=== PATIENT | female | born 1940 | race Caucasian/White ===

== ENCOUNTER → 2016-06-21 | Outpatient (CLI) | payer BC ==
[~2016-06-21] MED LIST: ACCL20 PO; ALBU1AER9 INH; APIX1TAB3 PO; ATOR-24 PO; CHOL100010 PO; CLC100X PO; CLIN300C2 PO; CLTP PO; COEN100C6 PO; DILT-117 PO; FAMO20TA12 PO; FIBER PO; LISI-787 PO; MELATAB2 PO; METR0.7536 TOP; MULT-506 PO; MULT60CA PO; TYL325X PO
--- NOTE | 2016-06-21 13:59 | MAMMOGRAPHY REPORT ---
BILATERAL DIGITAL SCREENING MAMMOGRAM WITH CAD: 06/21/2016 CLINICAL HISTORY: Routine screening. Patient has no complaints. TECHNIQUE: Current study was also evaluated with a Computer Aided Detection (CAD) system. Bilatera l CC and MLO views were obtained. COMPARISON: Comparison is made to exams dated: 06/17/2015 mammogram, 06/16/2014 mammogram, 05/05/2013 m ammogram, 11/05/2012 mammogram - [facility], 02/21/2010 mammogram - [facility], and 05/06/2012 mammogram - [facility]. BREAST COMPOSITION: There are scattered areas of fibroglandular density in both breasts. FINDINGS: No suspicious masses, calcifications, or areas of architectural distortion are noted in e ither breast. There has been no significant interval change compared to prior exams. Scattered bilat eral benign-appearing calcifications are not significantly changed. IMPRESSION: ACR BI-RADS CATEGORY 2: BENIGN There is no mammographic evidence of malignancy. A 1 year screening mammogram is recommended. The p atient will receive written notification of the results. Approximately 10% of breast cancers are not detected with mammography. A negative mammographic repor t should not delay biopsy if a clinically suggestive mass is present. Starr Wright M.D. /:06/21/2016 12:19:43 Keyseating Machine Set Up Operator: Payal Rainey [facility] letter sent: Normal 1/2 BI-RADS Code: ACR BI-RADS Category 2: Benign
== END | disposition home or self-care (01) ==
LOC: C.MAMM 10:12
PROVIDERS: ATTEND Family Medicine
DX: Z12.31 Encounter for screening mammogram for malignant neoplasm of breast (principal)

== ENCOUNTER → 2017-03-12 | Outpatient (CLI) | payer BC | END | disposition home or self-care (01) | LOC: C.LABSPEC 17:12 | PROVIDERS: ATTEND Nurse Practitioner Adult Health | DX: R32 Unspecified urinary incontinence (principal); R39.15 Urgency of urination; R35.0 Frequency of micturition; R35.1 Nocturia ==

== ENCOUNTER 2017-03-27 11:50 | Observation (INO) | payer BC ==
[~2017-03-27] VITALS: Ht 162.6 cm; Wt 104.9 kg
[2017-03-27] VITALS (8 sets, daily range): BP systolic 138–180; BP diastolic 71–78; PULSE 69–78; TEMP 36.4–36.9; O2SAT 93–96; Ht 162.6 cm; Wt 104.9 kg
[~2017-03-27 11:50] MED LIST changes: +CEFAZOLIN IV 1,000 MG in DEXTROSE 5% 50ML IV SCH
[2017-03-27] MEDS ORDERED: OMEG100046 PO (12:54)
[2017-03-27] MEDS ORDERED: NAPR1TAB9 PO (12:54)
[2017-03-27] MEDS ORDERED: MIRA100T PO (12:54)
[2017-03-27] MEDS ORDERED: ALLO100T PO (12:54)
[2017-03-27] MEDS ORDERED: FLUT0.15 NAE (12:54)
[2017-03-27] MEDS ORDERED: LNX125 PO (12:54)
--- NOTE | 2017-03-27 12:56 | History and Physical ---
History General Date of Service: Mar 27, 2017. Stated Complaint: Bradycardia History of Present Illness The patient is a 76 year old female who presents to [facility] with complaints of Bradycardia. The patient's primary care provider is Ryland Hillman MD. She has history of paroxysmal atrial fibrillation with rapid ventricular rates. She has also noted on routine outpatient monitoring to have periods of junctional bradycardia associated with symptoms. 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 Recently the patient has been feeling well. She is not dizzy today. She has no current dyspnea or shortness of breath. No current chest discomfort. No sense of palpitation. Historian: patient, spouse Review of Systems Per HPI. No recent fevers or chills. All Other Systems: Reviewed and Negative Past Medical/Surgical History Atrial fibrillation, paroxysmal Diabetes mellitus Gout Hyperlipidemia Asthma Hypertension Peripheral neuropathy Past surgical history: Ankle surgery Knee surgery Tonsillectomy Cataracts Tubal ligation Family History FHx: cancer FHx: lung disease Hypertension No premature coronary disease Social History Currently lives locally with her Smoking Status: Never Smoker Alcohol: occasionally Drug Use: none Marital Status: Housing Status: lives with family Occupation Status: retired Immunizations History of Influenza Vaccine: Yes History of Tetanus Vaccine?: Yes Tetanus Immunization Date: November 08, 1998 History of Pneumococcal: Yes Pneumococcal Date: November 08, 2004 History of Hepatitis B Vaccine: No History of MDRO History of MDRO: No Allergies Coded Allergies: Penicillins (Verified Allergy, Mild, RASH, 03/27/17) Tetracycline (Verified Allergy, Mild, GI SYMPTOMS, 03/27/17) Sulfamethoxazole w/Trimethoprim (Verified Adverse Reaction, Unknown, MAKES SKIN ITCHY, 03/27/17) Current Home Medications Reported Home Medications Medications Dose Route/Sig Max Daily Dose Days Date Category Dose Instructions Tylenol (Acetaminophen) 325 Mg Tab 650 Mg PO Q4H PRN 30 04/03/16 Rx Cleocin (Clindamycin Hcl) 300 Mg Cap 300 Mg PO TIDM 14 04/03/16 Rx Preservision Areds 2 (Multiple Vitamins W/ Minerals) 1 Cap Cap 1 Cap PO DAILY 03/29/16 Reported Multivitamin (Multivitamins) Tab 1 Tab PO DAILY 03/29/16 Reported Metronidazole (Metronidazole (Topical)) 1 % Gel Unknown Dose TOP BID 03/29/16 Reported Melatonin Maximum Strengt (Melatonin) 5 Mg Tab 20 Mg PO HS 30 03/29/16 Reported Tiazac (Diltiazem HCl) 300 Mg Capcr 300 Mg PO DAILY 03/29/16 Reported Eliquis (Apixaban) 5 Mg Tab 5 Mg PO BID 03/29/16 Reported Zafirlukast 20 Mg Tab 10 Mg PO BID 04/28/14 Reported Co-Enzyme Q10 (Coenzyme Q10 (Ubidecarenone)) 100 Mg Cap 200 Mg PO DAILY 04/28/14 Reported Fiber Laxative (Fiber) Ea 6 Tabs PO DAILY 04/28/14 Reported Zestoretic 20-12.5 mg (Lisinopril & Hydrochlorothiazi) 1 Tab Tab 1 Mg PO BID 04/28/14 Reported Famotidine 20 Mg Tab 10 Mg PO DAILY 04/28/14 Reported Colace (Docusate Sodium) 100 Mg Cap 600 Mg PO DAILY 04/28/14 Reported take 6 colace tablets daily at bedtime Vitamin D (Cholecalciferol) 1,000 Inter.unit Tab 1,000 Inter.unit PO DAILY 04/28/14 Reported Lipitor (Atorvastatin Calcium) 40 Mg Tab 40 Mg PO HS 04/28/14 Reported Proair Hfa (Albuterol) Aers 2 Puffs INH QID PRN 04/28/14 Reported Caltrate 600 Plus * (Calcium/Vitamin D) Tab 1 Tab PO DAILY 10/18/06 Reported Physical Exam She is alert and oriented x3. Mood affect appear normal. She answered all questions appropriately. HEENT: Sclerae are anicteric. Pupils are equal and reactive to light and accommodation. Extraocular movements were intact. Neuro: Cranial nerves intact Neck: Examination of the submandibular region did not reveal any significant lymphadenopathy. Carotids are palpable bilaterally and free of bruits on auscultation. There was no evidence of jugular venous distention. The thyroid was not enlarged. Lungs: Lungs are clear to auscultation bilaterally. There are no rales wheezes or rhonchi. She has normal respiratory effort without use of accessory muscles. There is normal pulmonary excursion. Cardiac: The rhythm was regular. S1 and S2 were normal. There are no murmurs on examination. The PMI was not markedly displaced on palpation. Abdomen: The abdomen was soft and nontender. Extremities: Patient has bilateral radial pulses that are equal in intensity. There is no evidence cyanosis or clubbing. There was no evidence of significant peripheral edema bilaterally. Skin: There are no rashes noted on examination today. Diagnostics Laboratory Results I reviewed her records from [facility] cardiology Impression Assessment and Plan 1. Tachy-samm syndrome: Patient did have some symptoms associated with the low heart rates reported as a junctional rhythm. She also has high heart rates while in atrial fibrillation. In order to facilitate better rate control and prevent symptoms she has good candidate for a permanent pacer due to symptomatic non reversible sinus node dysfunction. Dual-chamber device is being selected today as the patient is currently in sinus rhythm which to maintain AV synchrony 2. Atrial fibrillation: This appears to be paroxysmal. She has been appropriately anticoagulated. We are holding anticoagulation for this procedure.
--- NOTE | 2017-03-27 12:57 | Procedure Note ---
Pre-Mod Sedation Assessment General Date of Moderate Sedation: Mar 27, 2017. Review Cardiovascular: regular rate, rhythm Pre-Sedation Airway Assessment Oral Cavity: WNL Able to Visualize Vocal Cords: No Short Thick Neck: No Hx of Sleep Apnea: No Smoking Status: Never Smoker Mallampati Classification: Class III ASA Classification: Class II Procedure Planning Contraindications-for Mod Sed: None Yes Notes The planned sedation has been discussed with the patient and consent obtained. I have identified the patient, determined the appropriateness of sedation and have assessed the patient immediately prior to the procedure. All medicine(s) and interventions are by my order.
[2017-03-27] MEDS ORDERED: FENTANYL CITRATE INJ 50 MCG/1 ML 2 ML VIAL ONE (13:19)
[2017-03-27] MEDS ORDERED: MIDAZOLAM HCL 5 MG/ML 1 ML VIAL ONE (13:19)
[2017-03-27] MEDS ORDERED: BUPIVACAINE 0.5 % 5 MG/1 ML MPF 30ML VIAL ONE (13:20)
[2017-03-27] MEDS ORDERED: BACITRACIN 50000 UNIT VIAL ONE (13:20)
[2017-03-27] MEDS ORDERED: LIDOCAINE HCL 1% 20 ML VIAL ONE (13:20)
[2017-03-27] MEDS ORDERED: CLINDAMYCIN 600 MG/54 ML D5W IV SCH (13:30)
[2017-03-27] MEDS ORDERED: CLINDAMYCIN IV 600 MG in DEXTROSE 5% ADD-VANTAGE 50ML 50 ML IV SCH (13:30)
[2017-03-27] MEDS ORDERED: ALBUTEROL 0.5% NEB SOLN 2.5 MG/0.5 ML VIAL INH PRN (14:30)
--- NOTE | 2017-03-27 14:36 | Procedure Note ---
Procedure Note Date of Service Mar 27, 2017. Procedure Note Procedure performed: Implantation of dual-chamber permanent pacemaker Staff research assistant member: Que Merida MD Indication: The patient is a 76-year-old woman with a history of paroxysmal atrial fibrillation rapid rates. He has also noted on rate control medications to have episodes of junctional bradycardia associated with symptoms. Based on these findings she was felt to be a good candidate for a permanent pacemaker due to symptomatic non reversible sinus node dysfunction. A dual-chamber device was selected as she is currently in sinus rhythm which to maintain AV synchrony Procedure in detail: The patient was informed of the risks benefits and alternatives to the intended procedure and she wished to proceed. She was taken to the electrophysiology suite in a fasting state. A preoperative antibiotic had been administered. The patient was monitored electrocardiographically throughout today's procedure and conscious sedation was administered per protocol. The left upper pectoral area is prepped and draped in usual sterile fashion. This area was anesthetized using subcutaneous menstruation of a xylocaine solution. An incision was made at this site and carried down to the prepectoralis fascia using sharp dissection. Electrocautery was also employed for dissection as well as for hemostasis. A device pocket was fashioned tissues above the pectoralis muscle. Subsequent to this maneuver the left axillary vein was accessed using modified Seldinger technique. Sheaths were placed over guidewires at this site and used to facilitate passage of the pacing leads to the respective chambers under fluoroscopic guidance. This included right atrial and right ventricular leads. Adequate sensing and threshold parameters were obtained prior to Active fixation of the leads to the endocardial surface. The proximal portion leads were then sutured the prepectoral fascia using nonabsorbable suture. The device pocket was irrigated with antibiotic solution. The leads were then attached to the device. The device and leads were then placed in the pocket and pocket was closed in 3 layers of absorbable suture. Steri-Strips and sterile dressing were applied. The device was tested noninvasively prior to conclusion the procedure. The patient tolerated procedure well there no immediate complications. Equipment used: New pulse generator: [employer]auffeur MedLoLo. Model number:[id number]. Serial number: [id number] Right atrial lead: Chauffeur Medtronic. Model number: [id number] Serial number: [id number] Right ventricular lead: Chauffeur Medtronic. Model number: [id number] Serial number: [id number] Measured data: Right atrial lead: P-waves measure 1.8 millivolts. Pacing threshold was 1 volt at 0.4 milliseconds with a pacing impedance of 399 Ohms Right ventricular lead: R-waves measure 6.8 millivolts. Pacing threshold 0.8 volts at 0.4 milliseconds with a pacing impedance of 798 Ohms Impression: Successful implantation of dual-chamber permanent pacemaker
[2017-03-27] MEDS ORDERED: IV FLUIDS COMPLETED PRN (15:30)
[2017-03-27] MEDS ORDERED: OXYCODONE HCL IR 5 MG TAB (IMMEDIATE RELEASE) PO PRN (15:45)
[2017-03-27] MEDS ORDERED: DIGOXIN 0.125 MG TAB PO SCH (16:00)
[2017-03-27] MEDS: FAMOTIDINE 20 MG TAB PO SCH (20:24)
[2017-03-27] MEDS: CLINDAMYCIN IV 600 MG in DEXTROSE 5% 50ML 50 ML IV SCH (20:27)
[2017-03-27] MEDS: ACETAMINOPHEN 325 MG TAB PO PRN (23:19)
[2017-03-28 03:43] VITALS: BP 152/77; PULSE 75; TEMP 37; O2SAT 97
[2017-03-28] MEDS: CLINDAMYCIN IV 600 MG in DEXTROSE 5% 50ML 50 ML IV SCH (05:21)
[2017-03-28] MEDS: ACETAMINOPHEN 325 MG TAB PO PRN (06:36)
--- NOTE | 2017-03-28 06:47 | DIAGNOSTIC IMAGING REPORT ---
CHEST 2 VIEWS ROUTINE HISTORY: 76 years-old Female EXACT TIME ORDERED Evaluate for pneumothorax and lead placement status post left subclavian pacer placement COMPARISON: Portable chest radiograph 10/18/2006 TECHNIQUE: 2 views of the chest FINDINGS: Cardiac silhouette is mildly enlarged. There is atherosclerosis of the aorta. Patient is slightly rotated to the right. Left subclavian pacer is present with leads overlying the right atrium and right ventricle. No postprocedural pneumothorax identified. No pleural effusion, overt pulmonary edema or focal airspace consolidation. Chronic background interstitial coarsening. Subsegmental bibasilar opacities suggest atelectasis or scarring. Degenerative changes are seen about the shoulders and spine. Multiple remote left-sided rib fractures. IMPRESSION: Status post placement of a left subclavian pacer with leads overlying the right atrium and right ventricle. No postprocedural pneumothorax. The above report was generated using voice recognition software. It may contain grammatical, syntax or spelling errors. Electronically signed by: Tne Carvalho M.D. 03/28/2017 6:46 AM Dictated Date/Time: 03/28/2017 6:43 AM
[2017-03-28 07:50] VITALS: BP 145/73; PULSE 72; TEMP 36.7; O2SAT 95
[2017-03-28] MEDS: FAMOTIDINE 20 MG TAB PO SCH (08:22)
--- NOTE | 2017-03-28 08:33 | Discharge Instructions ---
Discharge Instructions Date of Service Mar 28, 2017. Admission Reason for Admission: Bradycardia Discharge Discharge Diagnosis / Problem: Tachy-samm syndrome Discharge Goals Goal(s): Improve function, Improve disease control Activity Recommendations Activity Limitations: per Instructions/Follow-up section Lifting Limitations: none May Resume Sexual Activity: when tolerated Shower/Bathe: keep incision dry Driving or Machine Use: resume 1 day after discharge Keep incision dry and Steri-Strips intact until after follow-up in the clinic. No lifting left arm above the shoulder or behind the neck for 6 weeks. . Instructions / Follow-Up Instructions / Follow-Up Follow-up in Dr. Montgomery's office next week for wound check. Do not restart Eliquis until SundayMarch 30. Current Hospital Diet Patient's current hospital diet: AHA Diet (Heart Healthy), Diabetes Type 2 Diet Discharge Diet Recommended Diet: AHA Diet (Heart Healthy), Diabetes Type 2 Diet Procedures Procedures Performed: Implantation of Medtronic dual-chamber pacemaker Pending Studies Studies pending at discharge: no Medical Emergencies . Who to Call and When: Medical Emergencies: If at any time you feel your situation is an emergency, please call 911 immediately. . Non-Emergent Contact Non-Emergency issues call your: Dental Laboratory Manager Call Non-Emergent contact if: you have a fever, your pain is not controlled, your pain is worsening, wound has increased redness, wound has increased pain, you have any medication questions . . "Provider Documentation" section prepared by Ed Merida. . VTE Core Measure Inpt VTE Proph given/why not?: Treatment not indicated
--- NOTE | 2017-03-28 08:37 | Discharge Summary ---
Discharge Summary Admission Date: Mar 27, 2017 at 14:32 Discharge Disposition: Home Primary Diagnosis: Tachy-samm syndrome Secondary Diagnoses/Problems: Medical Problems: (1) Cellulitis of left groin Status: Acute Procedures: Implantation of Medtronic dual-chamber pacemaker Discharge Instructions Last Recorded Wt (Kilograms): 104.900 Activity Recommendations: limitations Return to School/Work: no limitations Diet At Discharge: resume previous diet Allergies: Coded Allergies: Penicillins (Verified Allergy, Mild, RASH, 03/27/17) Tetracycline (Verified Allergy, Mild, GI SYMPTOMS, 03/27/17) Sulfamethoxazole w/Trimethoprim (Verified Adverse Reaction, Unknown, MAKES SKIN ITCHY, 03/27/17) Special Care: Call your doctor if: * Temperature above 101 degrees * Pain not relieved by pain medicine ordered * There is increased drainage or redness from any incision * You have any unanswered questions or concerns. Avoid all tobacco products. If you need help to stop smoking, call [place]'s FREE QUITLINE at . This is a free call. Admission HPI The patient is a 76 year old female who presents to [facility] with complaints of Bradycardia. The patient's primary care provider is Ryland Hillman MD. She has history of paroxysmal atrial fibrillation with rapid ventricular rates. She has also noted on routine outpatient monitoring to have periods of junctional bradycardia associated with symptoms. 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 Recently the patient has been feeling well. She is not dizzy today. She has no current dyspnea or shortness of breath. No current chest discomfort. No sense of palpitation. Admission Physical Exam She is alert and oriented x3. Mood affect appear normal. She answered all questions appropriately. HEENT: Sclerae are anicteric. Pupils are equal and reactive to light and accommodation. Extraocular movements were intact. Neuro: Cranial nerves intact Neck: Examination of the submandibular region did not reveal any significant lymphadenopathy. Carotids are palpable bilaterally and free of bruits on auscultation. There was no evidence of jugular venous distention. The thyroid was not enlarged. Lungs: Lungs are clear to auscultation bilaterally. There are no rales wheezes or rhonchi. She has normal respiratory effort without use of accessory muscles. There is normal pulmonary excursion. Cardiac: The rhythm was regular. S1 and S2 were normal. There are no murmurs on examination. The PMI was not markedly displaced on palpation. Abdomen: The abdomen was soft and nontender. Extremities: Patient has bilateral radial pulses that are equal in intensity. There is no evidence cyanosis or clubbing. There was no evidence of significant peripheral edema bilaterally. Skin: There are no rashes noted on examination today. Additional Comments: On the day of discharge the wound was clean dry and intact. There is no evidence of a hematoma. There is no ecchymosis. Hospital Course The patient was admitted and underwent implantation of a dual-chamber pacemaker. The procedure itself was uncomplicated. There were no events overnight. On the day of discharge her exam revealed the implant site to be clean and dry with an intact incision. There was no significant hematoma or ecchymosis. She had minimal tenderness and discomfort at the implant site. I performed a full device interrogation which revealed good sensing and threshold parameters on both leads. There was normal device function. I reviewed her chest x-ray which demonstrated stable lead position and no evidence of pneumothorax. Total time spent on discharge = This includes examination of the patient, discharge planning, medication reconciliation, and communication with other providers.
[2017-03-28] MEDS ORDERED: ALLOPURINOL 100 MG TAB PO SCH (09:00)
[2017-03-28] MEDS ORDERED: DILTIAZEM HCL 180 MG ER CAP PO SCH (09:00)
[2017-03-28] MEDS ORDERED: LISINOPRIL/HCTZ 20/12.5MG TAB PO SCH (09:00)
[2017-03-28 10:12] VITALS: BP 145/73; PULSE 72; TEMP 36.7; O2SAT 95
== END 2017-03-28 10:42 | disposition home or self-care (01) ==
LOC: C.ACU 11:50 → ENRESERV 14:11 → CANRESERV 14:12 → ENRESERV 14:16 → C.2T 14:32
PROVIDERS: ADMIT Internal Medicine Clinical Cardiac Electrophysiology; ATTEND Internal Medicine Clinical Cardiac Electrophysiology
DX: I49.5 Sick sinus syndrome (principal); I48.0 Paroxysmal atrial fibrillation; E11.9 Type 2 diabetes mellitus without complications; M10.9 Gout, unspecified; E78.5 Hyperlipidemia, unspecified; J45.909 Unspecified asthma, uncomplicated; I10 Essential (primary) hypertension; G62.9 Polyneuropathy, unspecified; Z82.49 Family history of ischemic heart disease and other diseases of the circulatory system; Z83.6 Family history of other diseases of the respiratory system

== ENCOUNTER 2017-04-02 09:36 | Emergency (ER) | payer BC ==
[~2017-04-02] VITALS: Ht 162.6 cm; Wt 106.8 kg
[~2017-04-02 09:36] MED LIST changes: +ALLO100T PO; -CEFAZOLIN IV 1,000 MG in DEXTROSE 5% 50ML IV SCH; -CLIN300C2 PO; -FAMO20TA12 PO; +FLUT0.15 NAE; +LNX125 PO; +MIRA100T PO; +NAPR1TAB9 PO; +OMEG100046 PO; -TYL325X PO
[2017-04-02 09:44] VITALS: TEMP 37.1; Ht 162.6 cm; Wt 106.8 kg
[2017-04-02] MEDS ORDERED: DiphenhydrAMINE HCL 50 MG/ML VIAL IV STA ×2 (11:38→12:46)
[2017-04-02 11:58] LABS: BASO % 0.2 %; BASO ABS # 0.03 K/uL (0-0.2); COMPLETE YES; EOS % 7.1 %; IG% 0.6 %; LYMPH % 17.7 %; LYMPH ABS # 2.52 K/uL (1.2-3.4); MEAN CELL VOLUME 85.5 fL (80-100); MEAN CORPUSCULAR HEMOGLOBIN 28.5 pg (25-34); MEAN CORPUSCULAR HGB CONC 33.3 g/dl (32-36); MEAN PLATELET VOLUME 9.6 fL (7.4-10.4); MONO % 11.2 %; NEUT % 63.2 %; PLATELET COUNT 232 K/uL (130-400); RED BLOOD COUNT 4.56 M/uL (4.2-5.4); WHITE BLOOD COUNT 14.25 K/uL (4.8-10.8)
--- NOTE | 2017-04-02 12:02 | EMERGENCY ROOM VISIT NOTE ---
History Report prepared by Cherelle: Hilary Cobb Under the Supervision of: Dr. Rakesh Cardona M.D. First contact with patient: 11:12 Chief Complaint: ALLERGIC REACTION Stated Complaint: ITCHING Nursing Triage Summary: Pt states had a pacemaker placed last by Dr. Merida. Pt states she thinks she having an allergic reaction to the abx she had while here in the hospital. Pt states not currently taking an abx. D/C Sun. Pt reports having itching while here. Pt started on started on prednisone and zyrtec by Dr. Turner. "Throat is getting scratchy. It just seems to be progressing. I am frantic scratching." History of Present Illness The patient is a 76 year old female who presents to the Emergency Room with complaints of a persistent rash that began 6 days ago. The patient states that she is allergic to multiple antibiotics. She states that last Sunday she had a pacemaker placed by Dr. Merida. The patient states that she was given multiple doses of an unknown antibiotic. She denies currently taking that antibiotic. The patient states that she was discharged from the hospital on Sunday morning. She states that Sunday evening she began experiencing itching. The patient denies any breathing difficulties. She states that she was given a lotion for her rash. The patient states that she was started on Zyrtec and Prednisone. She reports a rash to her chest, back, arms, and groin. The patient denies any breathing problems, just noting that she is feeling itchy. Review of Systems See HPI for pertinent positives & negatives. A total of 10 systems reviewed and were otherwise negative. Past Medical & Surgical Medical Problems: (1) Acute lymphangitis of foot (2) Asthma (3) Borderline diabetes (4) Bradycardia (5) Cellulitis and abscess of toe (6) Gout attack (7) PAT (paroxysmal atrial tachycardia) (8) SIRS (systemic inflammatory response syndrome) Family History FHx: cancer FHx: lung disease Hypertension Social History Smoking Status: Never Smoker Alcohol Use: occasionally Drug Use: none Marital Status: Housing Status: lives with family Occupation Status: retired Current/Historical Medications Scheduled Allopurinol (Zyloprim), 100 MG PO DAILY Apixaban (Eliquis), 5 MG PO BID Atorvastatin (Lipitor), 40 MG PO HS Calcium Carbonate-Vitamin D (Calcium 500 + D), 1 TAB PO BID Cholecalciferol (Vitamin D3), 1,000 UNITS PO DAILY Coenzyme Q10 (Ubidecarenone) (Co-Enzyme Q10), 200 MG PO DAILY Digoxin (Digoxin), 125 MCG PO HS Diltiazem Hcl Ext Rel (Tiazac), 360 MG PO DAILY Docusate Sodium (Docusate Sodium), 800 MG PO DAILY Fiber Laxative (Fiber Laxative), 7 CAP PO DAILY Lisinopril & Hydrochlorothiazi (Zestoretic 20-12.5 mg), 2 TAB PO DAILY Melatonin (Melatonin Maximum Strengt), 20 MG PO HS Metronidazole (Topical) (Metronidazole), Unknown Dose TOP BID Mirabegron (Myrbetriq Er), 25 MG PO DAILY Multivitamin (Multivitamin), 1 TAB PO DAILY Ocuvite Preservision (Ocuvite Preservision), 1 TAB PO BID [place]-3 Fatty Acids ([place] 3), 2,000 MG PO DAILY Prednisone (Prednisone), 1 TAB PO DAILY Zafirlukast (Zafirlukast), 20 MG PO BID Scheduled PRN Acetaminophen (Tylenol), 325-650 MG PO UD PRN for Pain Albuterol Sulfate (Proair Respiclick), 2 PUFFS INH QID PRN for Wheezing Fluticasone Propionate (Nasal) (Flonase Allergy Relief), 1 SPRAY XIANG HS PRN for Nasal Congestion Mouthwashes (Biotene Dry Mouth Oral Ri), 1 SPRAY PO UD PRN for DRYNESS Naproxen (Aleve), 440 MG PO DAILY PRN for Pain Propylene Glycol (Ophth) (Systane Balance Restorati), 1 DROP OP DAILY PRN for DRYNESS Allergies Coded Allergies: Acetaminophen (Unverified Allergy, Mild, ITCHY WITH NO RASH, 04/02/17) Oxycodone (Unverified Allergy, Mild, ITCHY WITH NO RASH, 04/02/17) Penicillins (Verified Allergy, Mild, RASH, 04/02/17) Tetracycline (Verified Allergy, Mild, GI SYMPTOMS, 04/02/17) Sulfamethoxazole w/Trimethoprim (Verified Adverse Reaction, Unknown, MAKES SKIN ITCHY, 04/02/17) Physical Exam Vital Signs Date Time Temp Pulse Resp B/P (MAP) Pulse Ox O2 Delivery O2 Flow Rate FiO2 04/02/17 14:10 91 18 113/74 98 Room Air 04/02/17 13:07 87 18 120/72 95 Room Air 04/02/17 11:49 92 18 119/71 95 Room Air 04/02/17 09:44 37.1 101 18 150/65 96 Room Air 04/02/17 09:41 96 Room Air Physical Exam GENERAL: Patient is well appearing and in no acute distress. HEENT: No acute trauma, normocephalic atraumatic, mucous membranes moist, no nasal congestion, no scleral icterus. NECK: No stridor, no adenopathy, no meningismus, trachea is midline. CHEST: Well appearing incision site in the right upper chest. LUNGS: No dyspnea. Clear to auscultation and equal bilaterally. No wheeze, no rhonchi. HEART: Regular rate and rhythm. No murmurs, rubs, gallops appreciated. ABDOMEN: Soft, nontender, bowel sounds positive, no masses appreciated, no peritonitis. BACK: No midline tenderness, no CVA tenderness EXTREMITIES: Normal motion all extremities, no cyanosis, no edema. NEUROLOGIC: Alert and oriented, no acute motor or sensory deficits, no focal weakness, cranial nerves grossly intact. SKIN: No rash, no jaundice, no diaphoresis. Medical Decision & Procedures Laboratory Results 04/02/17 11:43 Red Blood Count 4.56, Mean Corpuscular Volume 85.5, Mean Corpuscular Hemoglobin 28.5, Mean Corpuscular Hemoglobin Concent 33.3, Mean Platelet Volume 9.6, Neutrophils (%) (Auto) 63.2, Lymphocytes (%) (Auto) 17.7, Monocytes (%) (Auto) 11.2, Eosinophils (%) (Auto) 7.1, Basophils (%) (Auto) 0.2, Neutrophils # (Auto ) 9.02, Lymphocytes # (Auto) 2.52, Monocytes # (Auto) 1.59, Eosinophils # (Auto ) 1.01, Basophils # (Auto) 0.03 04/02/17 11:43 Test 04/02/17 11:43 White Blood Count 14.25 K/uL (4.8-10.8) Red Blood Count 4.56 M/uL (4.2-5.4) Hemoglobin 13.0 g/dL (12.0-16.0) Hematocrit 39.0 % (37-47) Mean Corpuscular Volume 85.5 fL (80-100) Mean Corpuscular Hemoglobin 28.5 pg (25-34) Mean Corpuscular Hemoglobin Concent 33.3 g/dl (32-36) Platelet Count 232 K/uL (130-400) Mean Platelet Volume 9.6 fL (7.4-10.4) Neutrophils (%) (Auto) 63.2 % Lymphocytes (%) (Auto) 17.7 % Monocytes (%) (Auto) 11.2 % Eosinophils (%) (Auto) 7.1 % Basophils (%) (Auto) 0.2 % Neutrophils # (Auto) 9.02 K/uL (1.4-6.5) Lymphocytes # (Auto) 2.52 K/uL (1.2-3.4) Monocytes # (Auto) 1.59 K/uL (0.11-0.59) Eosinophils # (Auto) 1.01 K/uL (0-0.5) Basophils # (Auto) 0.03 K/uL (0-0.2) RDW Standard Deviation 50.4 fL (36.4-46.3) RDW Coefficient of Variation 16.3 % (11.5-14.5) Immature Granulocyte % (Auto) 0.6 % Immature Granulocyte # (Auto) 0.08 K/uL (0.00-0.02) Prothrombin Time 10.7 SECONDS (9.0-12.0) Prothromb Time International Ratio 1.0 (0.9-1.1) Activated Partial Thromboplast Time 25.4 SECONDS (21.0-31.0) Partial Thromboplastin Ratio 1.0 Anion Gap 8.0 mmol/L (3-11) Est Creatinine Clear Calc Drug Dose 45.0 ml/min Estimated GFR () 48.1 Estimated GFR (Non- 41.5 BUN/Creatinine Ratio 27.7 (10-20) Calcium Level 9.8 mg/dl (8.5-10.1) Digoxin Level 0.7 ng/ml (0.8-2.0) Laboratory results as reviewed by me. Medications Administered Medications (Trade) Dose Ordered Sig/Kaycee Route Start Time Stop Time Status Last Admin Dose Admin Diphenhydramine HCl (Benadryl Inj) 25 mg NOW STAT IV 04/02/17 11:38 04/02/17 11:40 DC 04/02/17 11:48 25 MG Diphenhydramine HCl (Benadryl Inj) 25 mg NOW STAT IV 04/02/17 12:46 04/02/17 12:47 DC 04/02/17 13:05 25 MG Sodium Chloride 500 ml @ 999 mls/hr Q31M STAT IV 04/02/17 12:46 04/02/17 13:16 DC 04/02/17 13:05 999 MLS/HR ED Course 1114: The patient was evaluated in room C6. A complete history and physical exam was performed by Dr. Amezcua, Facilities Maintenance Technician. 1135: The patient was evaluated in room C6. A complete history and physical exam was performed. 1138: Ordered Benadryl Inj 25 mg IV. 1246: I reevaluated the patient and she is half improved. We discussed further Benadryl and fluids and the patient is agreeable with the plan. She will be discharged after her fluids and additional Benadryl. Ordered Sodium Chloride 500 ml @ 999 mls/hr IV, Benadryl Inj 25 mg IV. Medical Decision Differential: Contact Dermatitis, Viral Exanthem, Urticaria, Allergic Reaction, SJS, Toxic Epidermal Necrolysis, Erythema Multiforme, Cellulitis, Scabies, HSV, Varicella, Zoster, Eczema, Staph Scalded Skin, Fungal, amongst other pathologies entertained. 76 pleasant female who was in hospital last week for pacemaker placement and following this with rash over chest/upper back that is itching in nature. Received Clinda while in hospital for surgical prophylaxis. No other symptoms. Currently on prednisone and zyrtec without much improvement. Given IV benadryl here with vast improvement. Labs with mild WBC elevation consistent with prednisone use. Glucose modestly elevated likely also prednisone but will need recheck by PCP. Cr a bit bumped for patient thus fluids and again will follow with PCP for further evaluation. I am not convinced this is Clinda but did caution her in future to mention it to physicians to check. Rash could also just be due to cleaning prior prior to surgery given it's localization. Medication Reconcilliation Current Medication List: was personally reviewed by me Blood Pressure Screening Patient's blood pressure: Normal blood pressure Blood pressure disposition: Did not require urgent referral Impression Primary Impression: Urticaria Additional Impressions: Renal insufficiency Elevated blood sugar Scribe Attestation The scribe's documentation has been prepared under my direction and personally reviewed by me in its entirety. I confirm that the note above accurately reflects all work, treatment, procedures, and medical decision making performed by me. Departure Information Dispostion Home / Self-Care Referrals Ryland Hillman MD (PCP) Forms HOME CARE DOCUMENTATION FORM, IMPORTANT VISIT INFORMATION Patient Instructions My [facility] Additional Instructions Please have your blood sugar and kidney function rechecked by your primary provider in the near future. Call for an appointment in the next few days. Your rash is likely allergic related to either the antibiotic you were given ( Clindamycin), or possibly the skin cleaning solution for your surgery. Return if worsening rash, shortness of breath, swelling, vomiting, chest pain or other concerns. Keep well hydrated. Avoid getting overheated and excessive exertion over the next few days. Use diphenhydramine (Benadryl) 25mg to 50mg every 6 to 8 hours as needed for rash/itching over the next few days. This may cause drowsiness so use care if driving or operating machinery. Problem Qualifiers
[2017-04-02 12:12] LABS: PROTHROMBIN TIME (PATIENT) 10.7 SECONDS (9.0-12.0)
[2017-04-02 12:14] LABS: BUN/CREATININE RATIO 27.7 (10-20); CALCIUM 9.8 mg/dl (8.5-10.1); CREATININE 1.25 mg/dl (0.60-1.20)
[2017-04-02] MEDS ORDERED: ACET-1311 PO (12:40)
[2017-04-02] MEDS ORDERED: DOCU100C31 PO (12:40)
[2017-04-02] MEDS ORDERED: VTMD1000 PO (12:40)
[2017-04-02] MEDS ORDERED: MOUTLIQ83 PO (12:40)
[2017-04-02] MEDS ORDERED: ALBU18002 INH (12:40)
[2017-04-02] MEDS ORDERED: MULT-190 PO (12:40)
[2017-04-02] MEDS ORDERED: CALCTAB65 PO (12:40)
[2017-04-02] MEDS ORDERED: DILT-119 PO (12:40)
[2017-04-02] MEDS ORDERED: PROP1SOL OP (12:40)
[2017-04-02] MEDS ORDERED: PRD/1 PO (12:43)
[2017-04-02] MEDS ORDERED: SODIUM CHLORIDE 0.9% 500ML 500 ML IV STA (12:46)
[2017-04-02 14:10] VITALS: BP 113/74; PULSE 91; O2SAT 98
== END 2017-04-02 14:21 | disposition home or self-care (01) ==
LOC: C.EDB 09:37 → C.EDC 14:21
DX: L50.8 Other urticaria (principal); N28.9 Disorder of kidney and ureter, unspecified; R73.9 Hyperglycemia, unspecified; J45.909 Unspecified asthma, uncomplicated; M10.9 Gout, unspecified; Z79.899 Other long term (current) drug therapy; Z88.0 Allergy status to penicillin; Z88.2 Allergy status to sulfonamides; Z88.5 Allergy status to narcotic agent; Z88.6 Allergy status to analgesic agent; Z88.8 Allergy status to other drugs, medicaments and biological substances; Z80.9 Family history of malignant neoplasm, unspecified; Z82.49 Family history of ischemic heart disease and other diseases of the circulatory system

== ENCOUNTER → 2017-05-15 | Outpatient (CLI) | payer BC ==
[~2017-05-15] MED LIST changes: +ACET-1311 PO; +ALBU18002 INH; -ALBU1AER9 INH; +CALCTAB65 PO; -CHOL100010 PO; -CLC100X PO; -CLTP PO; -DILT-117 PO; +DILT-119 PO; +DOCU100C31 PO; +MOUTLIQ83 PO; +MULT-190 PO; -MULT60CA PO; +PRD/1 PO; +PROP1SOL OP; +VTMD1000 PO
== END | disposition home or self-care (01) ==
LOC: C.LABSPEC 16:55
PROVIDERS: ATTEND Urology
DX: R32 Unspecified urinary incontinence (principal); R39.15 Urgency of urination; N39.0 Urinary tract infection, site not specified

== ENCOUNTER → 2017-06-26 | Outpatient (CLI) | payer BC ==
--- NOTE | 2017-06-27 15:08 | MAMMOGRAPHY REPORT ---
BILATERAL DIGITAL SCREENING MAMMOGRAM TOMOSYNTHESIS WITH CAD: 06/26/2017 CLINICAL HISTORY: Routine screening. Patient has no complaints. TECHNIQUE: Breast tomosynthesis in addition to standard 2D mammography was performed. Current study was also evaluated with a Computer Aided Detection (CAD) system. COMPARISON: Comparison is made to exams dated: 06/21/2016 mammogram, 06/17/2015 mammogram, 06/16/2014 august mogram, 05/05/2013 mammogram, 11/05/2012 mammogram, and 05/01/2012 mammogram - [facility] enter. BREAST COMPOSITION: There are scattered areas of fibroglandular density in both breasts. FINDINGS: There are diffuse bilateral benign coarse calcifications and moderate vascular calcificatio n in the breasts. Stable nodularity in the right breast. No new suspicious mass, architectural dist ortion or cluster of microcalcifications is seen. IMPRESSION: ACR BI-RADS CATEGORY 1: NEGATIVE There is no mammographic evidence of malignancy. A 1 year screening mammogram is recommended. The pa tient will receive written notification of the results. Approximately 10% of breast cancers are not detected with mammography. A negative mammographic report should not delay biopsy if a clinically suggestive mass is present. Lizzie Black M.D. ay/:06/26/2017 16:57:46 [employer]: Payal ONTIVEROS(Merlene)(Van), [facility] letter sent: Normal 1/2 BI-RADS Code: ACR BI-RADS Category 1: Negative
== END | disposition home or self-care (01) ==
LOC: C.MAMM 09:55
PROVIDERS: ATTEND Family Medicine
DX: Z12.31 Encounter for screening mammogram for malignant neoplasm of breast (principal)

== ENCOUNTER 2017-07-30 13:42 | Emergency (ER) | payer BC ==
[~2017-07-30] VITALS: Ht 162.6 cm; Wt 103.0 kg
[~2017-07-30 13:42] MED LIST changes: -APIX1TAB3 PO; -METR0.7536 TOP; -MULT-506 PO
[2017-07-30 13:45] VITALS: Ht 162.6 cm; Wt 103.0 kg
[2017-07-30] MEDS ORDERED: HYDR25TA5 PO (14:22)
[2017-07-30] MEDS ORDERED: CEFD1CAP14 PO (14:22)
[2017-07-30] MEDS ORDERED: ACETAMINOPHEN 500 MG TAB PO STA (14:27)
[2017-07-30] MEDS ORDERED: SODIUM CHLORIDE 0.9% 500ML 500 ML IV STA (14:27)
[2017-07-30] MEDS ORDERED: GUAIFENESIN 600 MG TABCR PO STA (14:27)
[2017-07-30] MEDS ORDERED: SODIUM CHLORIDE 0.65% NA SOLN 45 ML (OCEAN) ONE (14:30)
[2017-07-30] MEDS ORDERED: ALBUT/IPRATROP 3MG/0.5MG NEB 3 ML VIAL INH ONE (14:30)
[2017-07-30] MEDS ORDERED: DILT240C48 PO (14:37)
[2017-07-30 14:42] VITALS: O2SAT 96
[2017-07-30 15:09] VITALS: PULSE 94; O2SAT 94
--- NOTE | 2017-07-30 15:12 | EMERGENCY ROOM VISIT NOTE ---
History Report prepared by Cherelle: Abiola Swartz Under the Supervision of: Dr. Nash Oreilly M.D. First contact with patient: 14:25 Chief Complaint: COUGH Stated Complaint: COUGH,PAIN IN SHOULDER DOWN LT ARM Nursing Triage Summary: pt to the ED with productive cough with green sputum and coughing so hard her back and shoulder hurt per pt History of Present Illness The patient is a 77 year old female who presents to the Emergency Room with complaints of a persistent productive cough with green sputum that began 10 days ago. She notes that she has been experiencing left shoulder pain, which radiates down to her hand. The patient denies any chest pain, nausea, vomiting, or diarrhea. She reports that she has been using her nebulizer about twice a day and Robitussin, which has relieved some of her symptom. The patient notes that she went to the [facility] walk-in clinic 2 days ago, noting they gave antibiotics. She reports that she has a pace maker in place for atrial fibrillation and takes Eliquis. The patient notes a history of asthma, but denies any history of heart attacks. Source of History: patient Onset: 10 days ago Position: other (global ) Symptom Intensity: productive Quality: other (productive cough) Timing: other (persistent ) Associated Symptoms: No chest pain, No nausea, No vomiting, No diarrhea Note: Associated symptoms include: left shoulder pain. Review of Systems See HPI for pertinent positives and negatives. A total of ten systems were reviewed and were otherwise negative. Past Medical & Surgical Medical Problems: (1) Acute lymphangitis of foot (2) Asthma (3) Borderline diabetes (4) Bradycardia (5) Cellulitis and abscess of toe (6) Gout attack (7) PAT (paroxysmal atrial tachycardia) (8) SIRS (systemic inflammatory response syndrome) Family History FHx: cancer FHx: lung disease Hypertension Social History Smoking Status: Never Smoker Alcohol Use: occasionally Drug Use: none Marital Status: Housing Status: lives with family Occupation Status: retired Current/Historical Medications Scheduled Allopurinol (Zyloprim), 100 MG PO DAILY Apixaban (Eliquis), 5 MG PO DAILY Atorvastatin (Lipitor), 40 MG PO HS Calcium Carbonate-Vitamin D (Calcium 500 + D), 1 TAB PO BID Cefdinir (Omnicef), 300 MG PO Q12H Cholecalciferol (Vitamin D3), 1,000 UNITS PO DAILY Coenzyme Q10 (Ubidecarenone) (Co-Enzyme Q10), 200 MG PO DAILY Digoxin (Digoxin), 125 MCG PO HS Diltiazem Hcl Coated Beads (Cartia Xt), 240 MG PO BID Docusate Sodium (Docusate Sodium), 100 MG PO DAILY Fiber Laxative (Fiber Laxative), CAP PO DAILY Hydrochlorothiazide (Hydrochlorothiazide), 12.5 MG PO DAILY Metronidazole (Topical) (Metronidazole), Unknown Dose TOP DAILY Mirabegron (Myrbetriq Er), 25 MG PO DAILY Multivitamin (Multivitamin), 1 TAB PO DAILY Ocuvite Preservision (Ocuvite Preservision), 1 TAB PO BID [place]-3 Fatty Acids ([place] 3), 2,000 MG PO DAILY Oseltamivir Phosphate (Tamiflu), 75 MG PO BID Prednisone (Prednisone), 3 TAB PO DAILY Zafirlukast (Zafirlukast), 20 MG PO BID Scheduled PRN Albuterol Sulfate (Proair Respiclick), 2 PUFFS INH QID PRN for Wheezing Fluticasone Propionate (Nasal) (Flonase Allergy Relief), 1 SPRAY XIANG HS PRN for Nasal Congestion Mouthwashes (Biotene Dry Mouth Oral Ri), 1 SPRAY PO UD PRN for DRYNESS Naproxen (Aleve), 220 MG PO DAILY PRN for Pain Propylene Glycol (Ophth) (Systane Balance Restorati), 1 DROP OP DAILY PRN for DRYNESS Allergies Coded Allergies: Acetaminophen (Unverified Allergy, Mild, ITCHY WITH NO RASH, 04/02/17) Oxycodone (Unverified Allergy, Mild, ITCHY WITH NO RASH, 04/02/17) Penicillins (Verified Allergy, Mild, RASH, 07/30/17) Tetracycline (Verified Allergy, Mild, GI SYMPTOMS, 07/30/17) Sulfamethoxazole w/Trimethoprim (Verified Adverse Reaction, Unknown, MAKES SKIN ITCHY, 04/02/17) Physical Exam Vital Signs Date Time Temp Pulse Resp B/P (MAP) Pulse Ox O2 Delivery O2 Flow Rate FiO2 07/30/17 17:01 36.5 101 18 162/81 93 Room Air 07/30/17 15:56 36.4 87 18 158/90 100 Nebulizer 8.0 07/30/17 15:09 94 16 94 Room Air 07/30/17 14:42 96 Room Air 07/30/17 14:26 81 07/30/17 13:45 36.7 91 20 155/88 92 Room Air Physical Exam GENERAL: Awake, alert, fatigued-appearing, in no distress HENT: Normocephalic, atraumatic. Oropharynx with Dry mucous membrane and otherwise unremarkable. EYES: Normal conjunctiva. Sclera non-icteric. NECK: Supple. No nuchal rigidity. FROM. No JVD. RESPIRATORY: Scattered wheezes and rhonchi at bases. CARDIAC: IRIR. Extremities warm and well perfused. Pulses equal. ABDOMEN: Soft, non-distended. No tenderness to palpation. No rebound or guarding. No masses. RECTAL: Deferred. MUSCULOSKELETAL: Chest examination reveals no tenderness. The back is symmetrical on inspection without obvious abnormality. There is no CVA tenderness to palpation. No joint edema. LOWER EXTREMITIES: Calves are equal size bilaterally and non-tender. No edema. No discoloration. NEURO: Normal sensorium. No sensory or motor deficits noted. SKIN: No rash or jaundice noted. Medical Decision & Procedures ER Provider Diagnostic Interpretation: X-ray: Per my interpretation, radiologist review. CHEST ONE VIEW PORTABLE HISTORY: Atypical chest pain. Cough. COMPARISON: Chest 03/28/2017. FINDINGS: No pneumothorax. No pleural effusions. The heart remains enlarged. A few bibasilar linear densities suggestive of subsegmental atelectasis are scarring. No focal lung consolidations to suggest pneumonia. No evidence for pulmonary edema. Left-sided dual-chamber pacemaker is again noted. IMPRESSION: No significant change compared to the prior study. No acute process. Stable cardiomegaly. Electronically signed by: Hiren Bernal M.D. 07/30/2017 3:34 PM Dictated Date/Time: 07/30/2017 3:32 PM Laboratory Results 07/30/17 15:00 Red Blood Count 4.60, Mean Corpuscular Volume 86.1, Mean Corpuscular Hemoglobin 29.3, Mean Corpuscular Hemoglobin Concent 34.1, Mean Platelet Volume 9.4, Neutrophils (%) (Auto) 60.1, Lymphocytes (%) (Auto) 24.3, Monocytes (%) (Auto) 8.4, Eosinophils (%) (Auto) 5.6, Basophils (%) (Auto) 1.1, Neutrophils # (Auto) 5.51, Lymphocytes # (Auto) 2.23, Monocytes # (Auto) 0.77, Eosinophils # (Auto) 0.51, Basophils # (Auto) 0.10 07/30/17 15:00 Test 07/30/17 15:00 White Blood Count 9.17 K/uL (4.8-10.8) Red Blood Count 4.60 M/uL (4.2-5.4) Hemoglobin 13.5 g/dL (12.0-16.0) Hematocrit 39.6 % (37-47) Mean Corpuscular Volume 86.1 fL (80-100) Mean Corpuscular Hemoglobin 29.3 pg (25-34) Mean Corpuscular Hemoglobin Concent 34.1 g/dl (32-36) Platelet Count 265 K/uL (130-400) Mean Platelet Volume 9.4 fL (7.4-10.4) Neutrophils (%) (Auto) 60.1 % Lymphocytes (%) (Auto) 24.3 % Monocytes (%) (Auto) 8.4 % Eosinophils (%) (Auto) 5.6 % Basophils (%) (Auto) 1.1 % Neutrophils # (Auto) 5.51 K/uL (1.4-6.5) Lymphocytes # (Auto) 2.23 K/uL (1.2-3.4) Monocytes # (Auto) 0.77 K/uL (0.11-0.59) Eosinophils # (Auto) 0.51 K/uL (0-0.5) Basophils # (Auto) 0.10 K/uL (0-0.2) RDW Standard Deviation 47.7 fL (36.4-46.3) RDW Coefficient of Variation 15.2 % (11.5-14.5) Immature Granulocyte % (Auto) 0.5 % Immature Granulocyte # (Auto) 0.05 K/uL (0.00-0.02) Anion Gap 7.0 mmol/L (3-11) Est Creatinine Clear Calc Drug Dose 41.4 ml/min Estimated GFR () 45.1 Estimated GFR (Non- 38.9 BUN/Creatinine Ratio 19.6 (10-20) Calcium Level 10.2 mg/dl (8.5-10.1) Total Bilirubin 0.4 mg/dl (0.2-1) Direct Bilirubin 0.1 mg/dl (0-0.2) Aspartate Amino Transf (AST/SGOT) 14 U/L (15-37) Alanine Aminotransferase (ALT/SGPT) 32 U/L (12-78) Alkaline Phosphatase 108 U/L (45-117) Troponin I < 0.015 ng/ml (0-0.045) Pro-B-Type Natriuretic Peptide 396 pg/ml (0-1800) Total Protein 7.6 gm/dl (6.4-8.2) Albumin 3.5 gm/dl (3.4-5.0) Lipase 174 U/L (73-393) Influenza Type A (RT-PCR) Neg for Influ A (NEG) Influenza Type B (RT-PCR) Neg for Influ B (NEG) Laboratory results reviewed by me Medications Administered Medications (Trade) Dose Ordered Sig/Kaycee Route Start Time Stop Time Status Last Admin Dose Admin Sodium Chloride 500 ml @ 999 mls/hr Q31M STAT IV 07/30/17 14:27 07/30/17 14:57 DC 07/30/17 15:04 999 MLS/HR Albuterol/ Ipratropium (Duoneb) 12 ml ONE ONCE INH 07/30/17 14:30 07/30/17 14:35 DC 07/30/17 15:09 12 ML Prednisone (PredniSONE TAB) 60 mg NOW STAT PO 07/30/17 14:27 07/30/17 14:35 DC 07/30/17 15:07 60 MG Guaifenesin (Mucinex Contr Rel Tab) 600 mg NOW STAT PO 07/30/17 14:27 07/30/17 14:35 DC 07/30/17 15:06 600 MG Sodium Chloride ([place] Nasal [place]) 2 sprays NOW ONCE NA 07/30/17 14:30 07/30/17 14:35 DC 07/30/17 15:06 2 SPRAYS Acetaminophen (Tylenol Tab) 1,000 mg NOW STAT PO 07/30/17 14:27 07/30/17 14:35 DC 07/30/17 15:06 1,000 MG Oseltamivir Phosphate (Tamiflu Cap) 75 mg NOW STAT PO 07/30/17 16:41 07/30/17 16:42 DC 07/30/17 17:03 75 MG ECG Per My Interpretation Indication: back/shoulder pain Rate (beats per minute): 87 Rhythm: atrial fibrillation Findings: RBBB, no acute ischemic change, other (normal axis) ED Course 1426: The patient was evaluated in room C10. A complete history and physical exam was performed. 1628: I reevaluated the patient, who states he is feeling better. Discussed results and discharge instructions: she verbalized understanding and agreement. The patient is ready for discharge. Medical Decision I reviewed the patient's past medical history, medications, and the nursing notes as described above. Differential diagnosis: Etiologies such as infections, reactive airway disease, pneumonia, pneumothorax , COPD, CHF, cardiac ischemia, pulmonary embolism, musculoskeletal, gastrointestinal, as well as others were entertained. The patient is a 77 y/o woman with a pmhx of afib on Eliquis s/p PPM, asthma who presents to the emergency department with flu-like sx with cough and congestion per HPI. On arrival, the patient is in NAD, AFVSS. The patient is clinically dry appearing. EKG unremarkable. CXR negative. Labs unremarkable including WBC, Trop, BNP wnl. Flu screen negative. Patient feeling improved after IVF, APAP, prednisone, saline nasal spray, Mucinex. While Flu negative will treat empirically with Tamiflu given prevalence in the community. Patient will also continue her Cefdinir rx by her pcp.for bronchitis. Will add prednisone given the patient's h/o asthma. Findings and plan for follow-up reviewed with patient. Patient agreeable and d/c'd per discharge instructions. Medication Reconcilliation Current Medication List: was personally reviewed by me Impression Primary Impression: Influenza-like symptoms Additional Impression: Bronchitis Scribe Attestation The scribe's documentation has been prepared under my direction and personally reviewed by me in its entirety. I confirm that the note above accurately reflects all work, treatment, procedures, and medical decision making performed by me. Departure Information Dispostion Home / Self-Care Prescriptions Oseltamivir Phosphate (Tamiflu) 75 Mg Cap 75 MG PO BID, #10 CAP Prov: Nash Oreilly M.D. 07/30/17 Prednisone (Prednisone) 20 Mg Tab 3 TAB PO DAILY for 4 Days, #12 TAB FOR 4 DAYS Prov: Nash Oreilly M.D. 07/30/17 Referrals Ryland Hillman MD (PCP) Forms HOME CARE DOCUMENTATION FORM, IMPORTANT VISIT INFORMATION Patient Instructions ED Bronchitis Asthmatic, ED Flu, My [facility] Additional Instructions Please follow up with your primary care physician in the next 1-3 days for re- evaluation. You likely have a viral illness that may be the flu (although your screen today was negative). Otherwise, your exam, EKG, chest xray, and lab results did not show signs of an emergent condition at this time. Acetaminophen for pain and fevers as needed. Saline nasal spray and [id number] Mucinex to help loosen, thin, and clear mucus. Prednisone as directed. Tamiflu as directed. Continue your current antibiotic. Drink plenty of fluids to ensure hydration. Return to the emergency department for worsening symptoms as described in the accompanying instructions. Problem Qualifiers
[2017-07-30 15:17] LABS: BASO % 1.1 %; EOS % 5.6 %; EOS ABS # 0.51 K/uL (0-0.5); HEMATOCRIT 39.6 % (37-47); HEMOGLOBIN 13.5 g/dL (12.0-16.0); IG# 0.05 K/uL (0.00-0.02); LYMPH % 24.3 %; LYMPH ABS # 2.23 K/uL (1.2-3.4); MEAN CELL VOLUME 86.1 fL (80-100); MEAN CORPUSCULAR HEMOGLOBIN 29.3 pg (25-34); MEAN CORPUSCULAR HGB CONC 34.1 g/dl (32-36); MEAN PLATELET VOLUME 9.4 fL (7.4-10.4); MONO % 8.4 %; MONO ABS # 0.77 K/uL (0.11-0.59); NEUT % 60.1 %; NEUT ABS # 5.51 K/uL (1.4-6.5); PLATELET COUNT 265 K/uL (130-400); RED CELL DISTRIBUTION WIDTH CV 15.2 % (11.5-14.5); RED CELL DISTRIBUTION WIDTH SD 47.7 fL (36.4-46.3); WHITE BLOOD COUNT 9.17 K/uL (4.8-10.8)
--- NOTE | 2017-07-30 15:36 | DIAGNOSTIC IMAGING REPORT ---
CHEST ONE VIEW PORTABLE HISTORY: Atypical chest pain. Cough. COMPARISON: Chest 03/28/2017. FINDINGS: No pneumothorax. No pleural effusions. The heart remains enlarged. A few bibasilar linear densities suggestive of subsegmental atelectasis are scarring. No focal lung consolidations to suggest pneumonia. No evidence for pulmonary edema. Left-sided dual-chamber pacemaker is again noted. IMPRESSION: No significant change compared to the prior study. No acute process. Stable cardiomegaly. Electronically signed by: Hiren Bernal M.D. 07/30/2017 3:34 PM Dictated Date/Time: 07/30/2017 3:32 PM
[2017-07-30 15:37] LABS: ALBUMIN 3.5 gm/dl (3.4-5.0); ALT/SGPT 32 U/L (12-78); AST/SGOT 14 U/L (15-37); BLOOD UREA NITROGEN 26 mg/dl (7-18); CALCIUM 10.2 mg/dl (8.5-10.1); CARBON DIOXIDE 29 mmol/L (21-32); CREATININE 1.31 mg/dl (0.60-1.20); GLUCOSE 127 mg/dl (70-99); LIPASE 174 U/L (73-393); POTASSIUM 4.7 mmol/L (3.5-5.1); SODIUM 137 mmol/L (136-145)
[2017-07-30 15:42] LABS: ALKALINE PHOSPHATASE 108 U/L (45-117); TOTAL PROTEIN 7.6 gm/dl (6.4-8.2)
[2017-07-30 16:08] LABS: INFLUENZA A PCR Neg for Influ A (NEG); INFLUENZA B PCR Neg for Influ B (NEG)
[2017-07-30] MEDS ORDERED: OSELTAMIVIR PHOSPHATE 75 MG CAP PO STA (16:41)
[2017-07-30] MEDS ORDERED: OSEL75CA23 PO (16:44)
[2017-07-30] MEDS ORDERED: PRED20TA PO (16:44)
[2017-07-30 17:01] VITALS: BP 162/81; PULSE 101; TEMP 36.5; O2SAT 93
[2017-07-30] MEDS ORDERED: MULT-506 PO (23:08)
[2017-07-30] MEDS ORDERED: APIX1TAB3 PO (23:08)
[2017-07-30] MEDS ORDERED: METR0.7536 TOP (23:08)
== END 2017-07-30 17:09 | disposition home or self-care (01) ==
LOC: C.EDB 13:43 → C.EDC 17:09
DX: R05 Cough (principal); J40 Bronchitis, not specified as acute or chronic; J45.909 Unspecified asthma, uncomplicated; R73.03 Prediabetes; I47.1 Supraventricular tachycardia; J18.9 Pneumonia, unspecified organism; Z82.49 Family history of ischemic heart disease and other diseases of the circulatory system

== ENCOUNTER 2017-08-05 18:59 | Emergency (ER) | payer BC ==
[~2017-08-05] VITALS: Ht 162.6 cm; Wt 105.8 kg
[~2017-08-05 18:59] MED LIST changes: -ACET-1311 PO; +APIX1TAB3 PO; +CEFD1CAP14 PO; -DILT-119 PO; +DILT240C48 PO; +HYDR25TA5 PO; -LISI-787 PO; -MELATAB2 PO; +METR0.7536 TOP; +MULT-506 PO; +OSEL75CA23 PO; -PRD/1 PO
[2017-08-05 19:01] VITALS: TEMP 36.4; Ht 162.6 cm; Wt 105.8 kg
[2017-08-05] MEDS ORDERED: IBUPROFEN 600 MG TAB PO STA (19:18)
[2017-08-05] MEDS ORDERED: CYCLOBENZAPRINE HCL 5 MG TAB PO STA (19:18)
[2017-08-05] MEDS ORDERED: ALBINS/ INH (19:19)
[2017-08-05] MEDS ORDERED: BENZ100C18 PO (19:27)
[2017-08-05] MEDS ORDERED: IBUP-1451 PO (19:27)
[2017-08-05] MEDS ORDERED: CYCL5TAB PO (19:27)
[2017-08-05] MEDS ORDERED: BENZONATATE 100MG CAP PO ONE (19:30)
[2017-08-05 19:47] VITALS: BP 130/76; PULSE 63; O2SAT 97
--- NOTE | 2017-08-05 20:16 | EMERGENCY ROOM VISIT NOTE ---
History Report prepared by Cherelle: Soo Leal Under the Supervision of: Dr. Lul Alvarez M.D. First contact with patient: 19:05 Chief Complaint: COUGH Stated Complaint: COUGH,SORE BACK L SHOULDER History of Present Illness The patient is a 77 year old female who presents to the Emergency Room with complaints of a constant cough creating back pain starting 8 days ago. The patient states that she originally went to a walk in clinic that prescribed her antibitotic. She states that she came to the ED 6 days ago for persistent cough and because the back pain started. She reports that they thought that she had just pulled a muscle while coughing. The patient reports that she was discharged with Tamiflu and Prednisone. She reports that she finished the Tamiflu yesterday morning and the Prednisone two mornings ago. She reports that she tried to make an appointment with her PCP, but states that she could not get in until a week from Sunday. She reports that she came to the ED tonight because she could not make appointment with her PCP and is requesting to get prescription for cough medication and some sort of muscle relaxer for her back pain. The patient denies fever, urinary symptoms, chest pain, shortness of breath, abdominal pain, and recent trauma to her back. She denies ever being a smoker. Source of History: patient Onset: 8 days ago Position: back, other (global) Quality: other (cough) Timing: constant Associated Symptoms: No fevers, No chest pain, No SOB, No abdominal pain, No urinary symptoms Note: The patient complains of not being able to sleep. Review of Systems See HPI for pertinent positives and negatives. A total of ten systems were reviewed and were otherwise negative. Past Medical & Surgical Medical Problems: (1) Acute lymphangitis of foot (2) Asthma (3) Borderline diabetes (4) Bradycardia (5) Cellulitis and abscess of toe (6) Gout attack (7) PAT (paroxysmal atrial tachycardia) (8) SIRS (systemic inflammatory response syndrome) Family History FHx: cancer FHx: lung disease Hypertension Social History Smoking Status: Never Smoker Alcohol Use: occasionally Drug Use: none Marital Status: Housing Status: lives with family Occupation Status: retired Current/Historical Medications Scheduled Allopurinol (Zyloprim), 100 MG PO DAILY Apixaban (Eliquis), 5 MG PO BID Atorvastatin (Lipitor), 40 MG PO HS Calcium Carbonate-Vitamin D (Calcium 500 + D), 1 TAB PO BID Cefdinir (Omnicef), 300 MG PO Q12H Cholecalciferol (Vitamin D3), 1,000 UNITS PO DAILY Coenzyme Q10 (Ubidecarenone) (Co-Enzyme Q10), 200 MG PO DAILY Digoxin (Digoxin), 125 MCG PO HS Diltiazem Hcl Coated Beads (Cartia Xt), 240 MG PO BID Docusate Sodium (Docusate Sodium), 600 MG PO DAILY Fiber Laxative (Fiber Laxative), CAP PO DAILY Hydrochlorothiazide (Hydrochlorothiazide), 12.5 MG PO DAILY Metronidazole (Topical) (Metronidazole), 1 APPLN TOP DAILY Mirabegron (Myrbetriq Er), 25 MG PO DAILY Multivitamin (Multivitamin), 1 TAB PO DAILY Ocuvite Preservision (Ocuvite Preservision), 1 TAB PO BID Cash-3 Fatty Acids (Cash 3), 2,000 MG PO DAILY Oseltamivir Phosphate (Tamiflu), 75 MG PO BID Zafirlukast (Zafirlukast), 20 MG PO BID Scheduled PRN Albuterol Sulf (Proventil 0.083% 2.5MG/3ML), 2.5 MG INH Q4H PRN for SOB/Wheezing Albuterol Sulfate (Proair Respiclick), 2 PUFFS INH QID PRN for Wheezing Benzonatate (Tessalon Perles), 100 MG PO TID PRN for Cough Cyclobenzaprine Hcl (Flexeril), 5 MG PO TID PRN for Pain Fluticasone Propionate (Nasal) (Flonase Allergy Relief), 1 SPRAY XIANG HS PRN for Nasal Congestion Ibuprofen Tab (Motrin), 800 MG PO Q8H PRN for Pain Mouthwashes (Biotene Dry Mouth Oral Ri), 1 SPRAY PO UD PRN for DRYNESS Propylene Glycol (Ophth) (Systane Balance Restorati), 1 DROP OP DAILY PRN for DRYNESS Allergies Coded Allergies: Penicillins (Verified Allergy, Mild, RASH, 08/05/17) Tetracycline (Verified Allergy, Mild, GI SYMPTOMS, 08/05/17) Sulfamethoxazole w/Trimethoprim (Verified Adverse Reaction, Unknown, MAKES SKIN ITCHY, 08/05/17) Physical Exam Vital Signs Date Time Temp Pulse Resp B/P (MAP) Pulse Ox O2 Delivery O2 Flow Rate FiO2 08/05/17 19:47 63 16 130/76 97 08/05/17 19:01 36.4 88 18 155/77 95 Room Air Physical Exam Physical Exam GENERAL: She is oriented to person, place, and time. She appears well- developed and well-nourished. She does not appear distressed. HENT: Exam performed. Head: Normocephalic and atraumatic. Right Ear: External ear normal. No mastoid tenderness. Left Ear: External ear normal. No mastoid tenderness. Mouth/Throat: The oropharynx is clear and moist. No trismus in the jaw. No dental abscesses or uvula swelling. No oropharyngeal exudate or tonsillar abscesses. EYES: Conjunctivae and EOM are normal. Pupils are equal, round, and reactive to light. Right eye exhibits no discharge. Left eye exhibits no discharge. No scleral icterus. NECK: Normal range of motion. Neck supple. No JVD present. No spinous process tenderness present. No carotid bruit present. No rigidity. No tracheal deviation and normal range of motion present. No Brudzinski's sign and no Kernig 's sign noted. CV: Normal rate, regular rhythm, normal heart sounds and intact distal pulses. There is no peripheral edema. Palpable radial pulses bue. PULM/CHEST: Effort normal and breath sounds normal. No respiratory distress. No stridor. She has no wheezes. She has no rales. Chest Wall: She exhibits no tenderness. ABD: The abdomen is soft. Bowel sounds are normal. She has no distension. No mass is present. There is no tenderness. There is no rebound, no guarding, no Jordan's sign and no tenderness at McBurney's point. Rovsig negative MUSC/SKEL: Normal range of motion. There is no peripheral edema, tenderness or deformity. No tenderness to C, T or L-spine. Pain reproducible to palpation of the the left thoracic paraspinal muscle, reproducing chief complaint. Lower extremities have palpable DP. LYMPH: No cervical adenopathy. NEURO: She is alert and oriented to person, place, and time. She has normal strength. No cranial nerve deficit or sensory deficit. Coordination and gait normal. GCS eye subscore is 4. GCS verbal subscore is 5. GCS motor subscore is 6. Cerebellar tests wnl. SKIN: Skin is warm and dry. She is not diaphoretic. PSYCH: She has a normal mood and affect. She behavior is normal. Judgment and thought content normal. Medical Decision & Procedures Medications Administered Medications (Trade) Dose Ordered Sig/Kaycee Route Start Time Stop Time Status Last Admin Dose Admin Cyclobenzaprine HCl (Flexeril Tab) 5 mg ONE STAT PO 08/05/17 19:18 08/05/17 19:20 DC 08/05/17 19:27 5 MG Benzonatate (Tessalon Perles Cap) 100 mg NOW ONCE PO 08/05/17 19:30 08/05/17 19:31 DC 08/05/17 19:27 100 MG Ibuprofen (Motrin Tab) 600 mg NOW STAT PO 08/05/17 19:18 08/05/17 19:20 DC 08/05/17 19:27 600 MG ED Course 1905: The patient was evaluated in room C10. A complete history and physical exam was performed. EMR reviewed and patient was seen 6 days ago. She was afebrile at the time. Chest x-ray, lab work, and influenza were negative. She was discharged on Prednisone and Tamiflu. Patient also stated that she was prescribed antibiotics by walk in clinic in the week prior. The patient states that she is here today because she just needs something to help with her cough and back pain. Patient will receive prescription for antitussive, muscle relaxer, and analgesia, the first dose will be given in the ED and then the patient will be discharged home. DISCHARGE - Plan of care discussed with patient and questions answered. The patient was given both verbal and printed discharge instructions. The patient verbalized understanding and ability to comply. The patient is to seek outpatient follow up as noted in the discharge instructions. The patient verbalized understanding and ability to comply. The patient is discharged in stable condition. The patient was instructed to return for worsening symptoms. 1917: Ordered Motrin Tab 600 mg PO, Flexeril Tab 5 mg PO. 1929: Ordered Benzonatate 100 mg PO. Medical Decision 1905: The patient was evaluated in room C10. A complete history and physical exam was performed. EMR reviewed and patient was seen 6 days ago. She was afebrile at the time. Chest x-ray, lab work, and influenza were negative. She was discharged on Prednisone and Tamiflu. Patient also stated that she was prescribed antibiotics by walk in clinic in the week prior. The patient states that she is here today because she just needs something to help with her cough and back pain. Patient will receive prescription for antitussive, muscle relaxer, and analgesia, the first dose will be given in the ED and then the patient will be discharged home. DISCHARGE - Plan of care discussed with patient and questions answered. The patient was given both verbal and printed discharge instructions. The patient verbalized understanding and ability to comply. The patient is to seek outpatient follow up as noted in the discharge instructions. The patient verbalized understanding and ability to comply. The patient is discharged in stable condition. The patient was instructed to return for worsening symptoms. Medication Reconcilliation Current Medication List: was personally reviewed by me Blood Pressure Screening Patient's blood pressure: Elevated blood pressure Blood pressure disposition: Elevated BP felt to be situational Impression Primary Impression: Cough Scribe Attestation The scribe's documentation has been prepared under my direction and personally reviewed by me in its entirety. I confirm that the note above accurately reflects all work, treatment, procedures, and medical decision making performed by me. The chart was completed utilizing [email or web address] Speech voice recognition software. Grammatical errors, random word insertions, pronoun errors, and incomplete sentences are an occasional consequence of this system due to software limitations, ambient noise, and hardware issues. Any formal questions or concerns about the content, text, or information contained within the body of this dictation should be directly addressed to the physician for clarification. Departure Information Dispostion Home / Self-Care Prescriptions Cyclobenzaprine Hcl (FLEXERIL) 5 Mg Tab 5 MG PO TID Y for Pain, #21 TAB PRN Prov: Lul Alvarez M.D. 08/05/17 Ibuprofen Tab (MOTRIN) 800 Mg Tab 800 MG PO Q8H Y for Pain, #21 TAB Prov: Lul Alvarez M.D. 08/05/17 Benzonatate (TESSALON PERLES) 100 Mg Cap 100 MG PO TID Y for Cough, #21 CAP Prov: Lul Alvarez M.D. 08/05/17 Referrals Ryland Hillman MD (PCP) Forms HOME CARE DOCUMENTATION FORM, IMPORTANT VISIT INFORMATION Patient Instructions My [facility] Additional Instructions Return to the emergency department if he developed fever greater than 100.4, difficulty breathing, chest pain, blood in urine, urinary incontinence
== END 2017-08-05 19:48 | disposition home or self-care (01) ==
LOC: C.EDB 19:00 → C.EDC 19:48
DX: R05 Cough (principal); M54.9 Dorsalgia, unspecified; J45.909 Unspecified asthma, uncomplicated; Z79.01 Long term (current) use of anticoagulants; Z88.0 Allergy status to penicillin; Z88.1 Allergy status to other antibiotic agents; Z88.2 Allergy status to sulfonamides; Z80.9 Family history of malignant neoplasm, unspecified; Z82.49 Family history of ischemic heart disease and other diseases of the circulatory system